=== PATIENT | male | born 1990 ===

== ENCOUNTER → 2016-10-28 | Outpatient (CLI) | payer OTHER ==
--- NOTE | 2016-10-28 15:05 | DIAGNOSTIC IMAGING REPORT ---
LEFT WRIST MIN 3 VIEWS ROUTINE CLINICAL HISTORY: Fall on outstretched hand. Tenderness at base of third metacarpal. COMPARISON: None FINDINGS: Lateral view demonstrates a mildly displaced fracture of the dorsal aspect of the left wrist consistent with a mildly displaced triquetral fracture. No additional fractures are identified on this exam. Scaphoid is intact. IMPRESSION: Acute mildly displaced left triquetral fracture. Electronically signed by: Michele Long M.D. 10/28/2016 3:03 PM Dictated Date/Time: 10/28/2016 3:01 PM
== END | disposition home or self-care (01) ==
LOC: C.RAD1850 14:06
PROVIDERS: ATTEND Internal Medicine
DX: S69.92XA Unspecified injury of left wrist, hand and finger(s), initial encounter (principal); X58.XXXA Exposure to other specified factors, initial encounter